=== PATIENT | male | born 1970 | race Caucasian/White ===

== ENCOUNTER 2017-10-10 15:00 | Outpatient (RCR) | payer OTHER | END 2017-11-03 | disposition home or self-care (01) | LOC: WSPT | DX: M25.561 Pain in right knee (principal); G89.29 Other chronic pain ==

== ENCOUNTER 2019-08-16 02:51 | Emergency (ER) | payer OTHER ==
[~2019-08-16] VITALS: Ht 182.9 cm; Wt 127.3 kg
[2019-08-16 03:01] VITALS: TEMP 97.5
[2019-08-16 03:33] LABS: BASO # 0.1 (0.0-0.2); BASO % 1.9 % (0.0-2.0); EOS # 0.7 (0.0-0.7); EOS % 9.3 % (0-4.0); GRAN # 3.4 (1.4-6.5); HEMOGLOBIN 15.9 g/dl (13.5-18.0); LYMPH # 2.1 (1.2-3.4); LYMPH % 29.6 % (20.0-51.0); MEAN CELL VOLUME 92 fl (80.0-100.0); MEAN CORPUSCULAR HEMOGLOBIN 32 pg (27.0-31.0); MEAN CORPUSCULAR HGB CONC 35 g/dl (33.0-37.0); MEAN PLATELET VOLUME 9.9 fl (7.4-10.4); MONO # 0.7 (0.1-0.6); MONO % 10.1 % (1.7-9.3); PLATELET COUNT 245 K/mm3 (130-400); RED BLOOD COUNT 4.91 M/mm3 (4.20-5.60); REDCELL DISTRIBUTION WIDTH-CV 13.1 % (11.5-14.5)
[2019-08-16 03:42] LABS: ALBUMIN 4.4 gm/dL (3.5-5.0); BILIRUBIN,TOTAL 0.6 mg/dL (0.0-1.0); CALCIUM 9.5 mg/dL (8.4-10.2); CREATININE, serum 1.28 (0.66-1.25); POTASSIUM 3.9 mmol/L (3.4-5.0); TOTAL PROTEIN 8.1 gm/dL (6.4-8.2)
[2019-08-16 03:53] LABS: TROPONIN-I 0.015 ng/mL (0.000-0.035)
[2019-08-16 04:16] LABS: PH 5 (5-8); SQUAMOUS EPITHELIAL None Seen /hpf; URINE APPEARANCE Clear; URINE BACTERIA None Seen /hpf; URINE BILIRUBIN Negative (NEGATIVE); URINE BLOOD Negative (NEGATIVE); URINE COLOR Straw; URINE GLUCOSE 3+ (NEGATIVE); URINE KETONE Negative (NEGATIVE); URINE LEUKOCYTE ESTERASE Negative (NEGATIVE); URINE NITRATE Negative (NEGATIVE); URINE PROTEIN(semi-quant) Negative (NEGATIVE); URINE RBC None Seen /hpf; URINE UROBILINOGEN Negative (NEGATIVE); URINE WBC None Seen /hpf
[2019-08-16 04:30] LABS: COLLECTION METHOD CLEAN CATCH
[2019-08-16] MEDS ORDERED: LOTREL 5/10MG C1 CAP PO (05:54)
[2019-08-16] MEDS ORDERED: GLUCOPHAGE500 MG/TAB PO (05:55)
[2019-08-16 06:14] VITALS: BP 147/86; PULSE 67
== END 2019-08-16 06:15 | disposition home or self-care (01) ==
LOC: COL.ER 02:51
PROVIDERS: Emergency Medicine
DX: I10 Essential (primary) hypertension (principal); R51 Headache; E78.5 Hyperlipidemia, unspecified; E11.9 Type 2 diabetes mellitus without complications
CPT/HCPCS: J1885; J7030